=== PATIENT | female | born 1970 | race Hispanic/Latino ===

== ENCOUNTER 2017-07-14 19:15 | Emergency (ER) | payer OTHER, MEDICARE ==
[2017-07-14 20:01] LABS: APPEARANCE,URINE Cloudy (CLEAR); BILIRUBIN,URINE Negative (NEGATIVE); COLOR,URINE Yellow (YELLOW); GLUCOSE, URINE (UA) Negative (NEGATIVE); KETONES,URINE Negative (NEGATIVE); LEUKOCYTE ESTERASE ,URINE Large (NEGATIVE); NITRATE,URINE Positive (NEGATIVE); OCCULT BLOOD,URINE Negative (NEGATIVE); PROTEIN,URINE Trace (NEGATIVE); UROBILINOGEN,URINE 0.2 mg/dL (0.2-1.0)
[2017-07-14] MEDS ORDERED: SODIUM CHLORIDE 0.9% 1000ML 1,000 ML IV ONE (20:04)
[2017-07-14] MEDS ORDERED: KETOROLAC TROMETHAMINE 30MG/ML ONE (20:04)
[2017-07-14] MEDS ORDERED: ONDANSETRON HCL MDV 20ML 2 MG/ML VIAL ONE (20:04)
[2017-07-14 20:12] LABS: BASOPHILS % (AUTO) 0.8 % (0.0-5.0); EOSINOPHILS % (AUTO) 1.1 % (0.0-8.0); HEMATOCRIT 41.2 % (36-48); LYMPHOCYTES % (AUTO) 23.8 % (21.0-51.0); MEAN CORPUSCULAR VOLUME 78.8 fL (79-99); NEUTROPHILS % (AUTO) 65.3 % (40.0-77.0); PLATELET COUNT (AUTO) 367 K/uL (130-400); RED BLOOD CELL COUNT(AUTO) 5.23 MIL/uL (4.00-5.50); RED CELL DISTRIBUTION WIDTH 14.8 % (11.0-15.5); WHITE BLOOD COUNT (AUTO) 11.2 K/uL (4.8-10.8)
[2017-07-14 20:20] LABS: CREATININE 0.9 mg/dL (0.5-1.5); POTASSIUM 3.5 mmol/L (3.5-5.1)
[2017-07-14 20:21] LABS: BACTERIA,URINE Many /HPF (None Seen); MUCUS,URINE None Seen LPF (None Seen); RBC,URINE 0-1 /HPF (0-1); SQUAMOUS EPITHELIAL CELL,UR Moderate /HPF (0-2); TRICHOMONAS,URINE None Seen /LPF (None Seen); YEAST,URINE BUDDING None Seen /HPF (None Seen)
[2017-07-14 20:25] LABS: ALBUMIN 3.3 g/dL (3.5-5.0); BILIRUBIN,DIRECT 0.1 mg/dL (0.0-0.3); BILIRUBIN,TOTAL 0.3 mg/dL (0.2-1.0); TOTAL PROTEIN, SERUM 7.8 g/dL (6.0-8.3)
== END 2017-07-14 20:54 | disposition home or self-care (01) ==
LOC: EDH 19:15
DX: R10.9 Unspecified abdominal pain (principal); N39.0 Urinary tract infection, site not specified; I10 Essential (primary) hypertension; Z90.49 Acquired absence of other specified parts of digestive tract; Z98.51 Tubal ligation status; Z98.890 Other specified postprocedural states; Z87.891 Personal history of nicotine dependence
CPT/HCPCS: 36415; 74176; 80048; 80076; 81001; 83690; 85025; 96374; 96375; 99285; J1885; J7030

== ENCOUNTER 2018-06-29 20:55 | Emergency (ER) | payer OTHER, MEDICARE ==
[2018-06-29 21:50] LABS: BASOPHILS % (AUTO) 0.6 % (0.0-5.0); EOSINOPHILS % (AUTO) 2.4 % (0.0-8.0); HEMATOCRIT 39.5 % (36-48); MEAN CORPUSCULAR HEMOGLOBIN 26.4 pg (27.0-33.0); MEAN CORPUSCULAR HGB CONC 33.6 g/dL (32.0-36.0); MEAN CORPUSCULAR VOLUME 78.6 fL (79-99); MONOCYTES % (AUTO) 10.5 % (3.0-13.0); NEUTROPHILS % (AUTO) 62.5 % (40.0-77.0); NUCLEATED RED BLOOD CELLS 0.1 % (0.0-0.19); PLATELET COUNT (AUTO) 286 K/uL (130-400); RED BLOOD CELL COUNT(AUTO) 5.03 MIL/uL (4.00-5.50); RED CELL DISTRIBUTION WIDTH 14.9 % (11.0-15.5); WHITE BLOOD COUNT (AUTO) 7.4 K/uL (4.8-10.8)
[2018-06-29 21:57] LABS: APPEARANCE,URINE Clear (CLEAR); BILIRUBIN,URINE Negative (NEGATIVE); COLOR,URINE Yellow (YELLOW); GLUCOSE, URINE (UA) Negative (NEGATIVE); KETONES,URINE Negative (NEGATIVE); LEUKOCYTE ESTERASE ,URINE Large (NEGATIVE); NITRATE,URINE Negative (NEGATIVE); OCCULT BLOOD,URINE Nonhemolyzed Trace (NEGATIVE); PH,URINE 6.5 (5.0-8.0); PROTEIN,URINE Negative (NEGATIVE); UROBILINOGEN,URINE 0.2 mg/dL (0.2-1.0)
[2018-06-29 22:10] LABS: CREATININE 0.9 mg/dL (0.5-1.5); POTASSIUM 3.2 mmol/L (3.5-5.1)
[2018-06-29 22:14] LABS: ALBUMIN 3.2 g/dL (3.5-5.0); BILIRUBIN,TOTAL 0.3 mg/dL (0.2-1.0); TOTAL PROTEIN, SERUM 7.2 g/dL (6.0-8.3)
[2018-06-29 22:19] LABS: BACTERIA,URINE Moderate /HPF (None Seen); SQUAMOUS EPITHELIAL CELL,UR Rare /HPF (0-2)
[2018-06-29] MEDS ORDERED: HYDROCODONE/ACETAMINOPHEN 10/325 MG TAB ONE ×2 (22:19→23:18)
[2018-06-29] MEDS ORDERED: CEPHALEXIN 500 MG CAPSULE ONE (23:18)
== END 2018-06-29 23:41 | disposition home or self-care (01) ==
LOC: EDH 20:55
DX: N39.0 Urinary tract infection, site not specified (principal); I10 Essential (primary) hypertension; Z98.890 Other specified postprocedural states; Z90.49 Acquired absence of other specified parts of digestive tract
CPT/HCPCS: 36415; 74176; 80053; 81001; 81025; 82150; 83690; 85025

== ENCOUNTER 2018-08-16 13:49 | Observation (INO) | payer OTHER, MEDICARE ==
[~2018-08-16] VITALS: Ht 157.5 cm; Wt 115.4 kg
[2018-08-16] MEDS ORDERED: ONDANSETRON HCL 4 MG/2 ML VIAL ONE ×2 (14:25→18:38)
[2018-08-16 14:29] LABS: BASOPHILS % (AUTO) 0.8 % (0.0-5.0); HEMATOCRIT 45.8 % (36-48); LYMPHOCYTES % (AUTO) 25.9 % (21.0-51.0); MEAN CORPUSCULAR HEMOGLOBIN 25.8 pg (27.0-33.0); MEAN CORPUSCULAR HGB CONC 32.9 g/dL (32.0-36.0); MEAN CORPUSCULAR VOLUME 78.3 fL (79-99); NEUTROPHILS % (AUTO) 64.3 % (40.0-77.0); PLATELET COUNT (AUTO) 356 K/uL (130-400); RED BLOOD CELL COUNT(AUTO) 5.84 MIL/uL (4.00-5.50); RED CELL DISTRIBUTION WIDTH 14.4 % (11.0-15.5); WHITE BLOOD COUNT (AUTO) 10.9 K/uL (4.8-10.8)
[2018-08-16 14:36] LABS: BILIRUBIN,URINE Negative (NEGATIVE); GLUCOSE, URINE (UA) Negative (NEGATIVE); KETONES,URINE Negative (NEGATIVE); LEUKOCYTE ESTERASE ,URINE Large (NEGATIVE); NITRATE,URINE Positive (NEGATIVE); OCCULT BLOOD,URINE Trace (NEGATIVE); PH,URINE 6.5 (5.0-8.0); PROTEIN,URINE Negative (NEGATIVE); UROBILINOGEN,URINE 0.2 mg/dL (0.2-1.0)
[2018-08-16 14:38] LABS: HCG,QUAL RESULT NEGATIVE (NEGATIVE)
[2018-08-16 14:40] LABS: APPEARANCE,URINE SLIGHTLY CLOUDY (CLEAR); COLOR,URINE Yellow (YELLOW)
[2018-08-16 14:46] LABS: ALBUMIN 3.6 g/dL (3.5-5.0); BILIRUBIN,DIRECT 0.1 mg/dL (0.0-0.3); BILIRUBIN,TOTAL 0.5 mg/dL (0.2-1.0)
[2018-08-16] MEDS ORDERED: KETOROLAC TROMETHAMINE 30MG/ML ONE (14:54)
[2018-08-16] MEDS ORDERED: CEFTRIAXONE SODIUM 1 GM ONE (14:54)
[2018-08-16] MEDS ORDERED: SODIUM CHLORIDE 0.9% 1000ML 1,000 ML IV ONE ×2 (14:55→19:26)
[2018-08-16 14:56] LABS: BACTERIA,URINE Moderate /HPF (None Seen); TRANSITIONAL EPI CELLS,URINE Few /HPF (None Seen); WBC,URINE >100 /HPF (0-1)
[2018-08-16 15:00] LABS: B-TYPE NATRIURETIC PEPTIDE 8 pg/mL (0-100)
[2018-08-16] MEDS ORDERED: POTASSIUM CHLORIDE 20 MEQ ERTAB PO ONE (16:14)
[2018-08-16] MEDS ORDERED: ZOSYN 3.375GM+NS 50ML 50 ML IV ONE (19:25)
[2018-08-16] MEDS ORDERED: LEVOFLOXACIN 500 MG/D5W 100 ML 100 ML ONE (19:25)
[2018-08-16] MEDS ORDERED: MORPHINE SULFATE 2 MG/ML 1ML SYG ONE (19:26)
[2018-08-16] MEDS ORDERED: ONDANSETRON HCL 4 MG/2 ML VIAL IVP PRN (20:00)
[2018-08-17 00:30] VITALS: BP 139/93
--- NOTE | 2018-08-17 02:00 | NUR ---
JANELLE HOSE APPLIED. EXPLAINED INDICATIONS FOR JANELLE HOSE. PT VERBALIZED UNDERSTANDING.
--- NOTE | 2018-08-17 02:06 | NUR ---
EXPLAINED CONTRACT OF SAFETY. PT VERBALIZED UNDERSTANDING AND SIGNED CONTRACT.
[2018-08-17] MEDS: MORPHINE SULFATE 2 MG/ML 1ML SYG IVP PRN ×2 (02:09→12:40)
[2018-08-17] MEDS ORDERED: NITR100C4 PO (02:45)
[2018-08-17] MEDS ORDERED: CEPH500C2 PO (02:45)
[2018-08-17] MEDS ORDERED: HYOS0.124 SL (03:30)
[2018-08-17] MEDS ORDERED: METF500S7 PO (03:30)
[2018-08-17] MEDS ORDERED: ONDA4TAB9 PO (03:30)
[2018-08-17] MEDS ORDERED: PROM25 PO (03:30)
[2018-08-17] MEDS: ZOSYN 3.375GM+NS 50ML 50 ML IV SCH ×3 (04:46→20:57)
[2018-08-17 04:50] VITALS: BP 123/55
[2018-08-17] MEDS: SODIUM CHLORIDE 0.9% 1000ML 1,000 ML IV SCH ×2 (07:20→17:24)
[2018-08-17 08:00] VITALS: BP 122/60
--- NOTE | 2018-08-17 08:00 | NUR ---
SUICIDE RISK PT LAYING IN BED WITHOUT ANY DISTRESS. BEE PAPPAS, TELLER COORDINATOR AT BEDSIDE 1:1 SITTER. PT DENIES CURRENT THOUGHTS OF SUICIDE. WILL CONTINUE TO MONITOR. Addendum: 08/17/18 at 1121 by DERECK CARRION RN RN Amended: Links added.
--- NOTE | 2018-08-17 08:45 | NUR ---
CONSULT DR. RODRIGUEZ'S OFFICE NOTIFIED OF CONSULT. SPOKE WITH JESUS.
--- NOTE | 2018-08-17 09:36 | NUR ---
HX OF BIPOLAR, DEPRESSION, ANXIETY, SUICIDE ATTEMPTS X3 AND RECENT IDEATIONS - NO PLAN SW MET WITH PT WHO LIVES ALONE IN APARTMENT, HAS PROVIDER 20HRS A WEEK, NO HH. PT ON SSD FOR BEING MENTALLY CHALLENGED. PT STATES SHE IS , HAS ADULT CHILDREN, A SON BERONICA GAMBINO [phone] (CORRECTION OFFICE IN [place]) AND A DAUGHTER WHO IS IN [place] AT [facility], SHE ALSO HAS MENTAL HEALTH ISSUES. PT'S MOTHER LIVES IN [place] [phone]. PT STATES SHE HAS HAD NO CONTACT WITH ANY FAMILY MEMBERS FOR YEARS. PT REPORTS SHE IS A PT AT [facility] AND WAS LAST SEEN A MONTH AGO. PT HAS A CASE WKER, SEES THE PSYCHIATRIST AND GETS MEDICATIONS ASSISTANCE THERE. PT STATES SHE LOST HER MEDICATIONS AND HAS NOT BEEN TAKING THEM. PT HAS HX OF THREE SUICIDE ATTEMPTS WHEN SHE WAS A TEEN BY OVER DOSE. PT STATES HER LAST IDEATION WAS A FEW DAYS AGO, BUT SHE HAD NO PLAN. PT DENIES ANY CURRENT THOUGHTS AT THIS TIME AND STATES SHE IS "FEELING FINE" AT THIS TIME. PT STATES SHE WAS WORRIED ABOUT PAYING HER ELECTRIC BILL, AND THAT [employer] HELPED HER WITH BILL. PT STATES HE WORRIES ABOUT PAYING RENT AND BILLS BECAUSE SHE LIVES ON LIMITED INCOME (SSD $750, AND FS $140). bUT USES HER COMMUNITY RESOURCES FOR HELP WHEN SHE HAS TO. PT ALSO USES MEDICAID TRANSPORT TO GET TO MEDICAL APPTS. NURSE DERECK AWARE OF ABOVE AND NEED FOR [facility] SCREEN WHEN MEDICALLY CLEARED FOR DC. SW TO FOLLOW AND ASSIST NEEDED
[2018-08-17 12:00] VITALS: BP 102/60
[2018-08-17 13:24] LABS: BASOPHILS % (AUTO) 0.6 % (0.0-5.0); EOSINOPHILS % (AUTO) 3.2 % (0.0-8.0); HEMATOCRIT 39.9 % (36-48); LYMPHOCYTES % (AUTO) 25.4 % (21.0-51.0); MEAN CORPUSCULAR HEMOGLOBIN 26.1 pg (27.0-33.0); MEAN CORPUSCULAR HGB CONC 32.6 g/dL (32.0-36.0); MONOCYTES % (AUTO) 7.6 % (3.0-13.0); NEUTROPHILS % (AUTO) 63.2 % (40.0-77.0); PLATELET COUNT (AUTO) 285 K/uL (130-400); RED BLOOD CELL COUNT(AUTO) 4.99 MIL/uL (4.00-5.50); RED CELL DISTRIBUTION WIDTH 14.8 % (11.0-15.5); WHITE BLOOD COUNT (AUTO) 6.4 K/uL (4.8-10.8)
[2018-08-17 13:33] LABS: POTASSIUM 3.1 mmol/L (3.5-5.1)
[2018-08-17 13:39] LABS: BILIRUBIN,TOTAL 0.3 mg/dL (0.2-1.0); MAGNESIUM 2.4 mg/dL (1.80-2.40); PHOSPHORUS 3.4 mg/dL (2.5-4.9); TOTAL PROTEIN, SERUM 6.7 g/dL (6.0-8.3)
--- NOTE | 2018-08-17 14:10 | NUR ---
ROUNDING YASMIN CASTILLO NP WITH BENCHMARK AT BEDSIDE TO ASSESS AND TALK TO PATIENT. NEW ORDERS RECEIVED.
[2018-08-17] MEDS ORDERED: TAMSULOSIN HCL 0.4 MG CAP.ER.24H PO SCH (14:15)
--- NOTE | 2018-08-17 15:31 | NUR ---
PSYCH CONSULT DR. PATEL' OFFICE MADE AWARE OF PT CONSULT.
[2018-08-17 16:30] VITALS: BP 99/66
[2018-08-17] MEDS: INSULIN HUMULIN R 100 UNIT/ML 3ML SQ SCH ×2 (16:30→21:00)
[2018-08-17] MEDS: METFORMIN HCL 500 MG TABLET PO SCH (17:24)
--- NOTE | 2018-08-17 17:45 | NUR ---
PSYCH ROUNDING DR. PATEL AT BEDSIDE TO ASSESS AND TALK TO PT. NEW ORDERS RECEIVED. Addendum: 08/17/18 at 1758 by DERECK CARRION RN RN PT CONTINUES TO DENY SUICIDAL IDEATIONS WHEN ASKED BY DR. PATEL.
[2018-08-17] MEDS ORDERED: HYDR-3421 PO (17:55)
[2018-08-17] MEDS ORDERED: FLUO20CA30 PO (17:55)
--- NOTE | 2018-08-17 18:40 | NUR ---
UROLOGY ROUNDING DR. RODRIGUEZ AT BEDSIDE TO ASSESS AND TALK TO PT. NEW ORDERS RECEIVED FOR CT OF ABD/PELVIS WITH AND WITHOUT IV CONTRAST.
[2018-08-17] MEDS ORDERED: LEVOFLOXACIN 500 MG/D5W 100 ML 100 ML IV SCH (19:00)
[2018-08-17 19:13] VITALS: BP 132/84
[2018-08-17] MEDS ORDERED: IOHEXOL-350 75 ML VIAL IV ONE (20:23)
--- NOTE | 2018-08-17 20:35 | NUR ---
TO RADIOLOGY BY W/C FOR CT SCAN Addendum: 08/17/18 at 2322 by JUSTINA ISRAEL LVN Amended: Links added.
[2018-08-17] MEDS: VENLAFAXINE HCL XR 37.5 MG CAP PO SCH (20:57)
[2018-08-17] MEDS ORDERED: VENLAFAXINE HCL XR 150 MG CAP PO SCH (21:00)
--- NOTE | 2018-08-18 01:05 | NUR ---
NAUSEA ASSISTED TO BR TO VOID, C/O NAUSEA , MEDICATED WITH ZOFRAN 4 MG SIV PUSH Addendum: 08/18/18 at 0207 by JUSTINA ISRAEL LVN Amended: Links added.
[2018-08-18 01:20] VITALS: BP 153/94
[2018-08-18] MEDS: SODIUM CHLORIDE 0.9% 1000ML 1,000 ML IV SCH ×2 (02:57→21:01)
[2018-08-18 05:00] VITALS: BP 168/95
[2018-08-18] MEDS: ZOSYN 3.375GM+NS 50ML 50 ML IV SCH ×3 (05:00→20:43)
[2018-08-18 05:40] LABS: BASOPHILS % (AUTO) 0.5 % (0.0-5.0); EOSINOPHILS % (AUTO) 3.4 % (0.0-8.0); HEMATOCRIT 39.4 % (36-48); LYMPHOCYTES % (AUTO) 26.6 % (21.0-51.0); MEAN CORPUSCULAR HEMOGLOBIN 25.7 pg (27.0-33.0); MEAN CORPUSCULAR HGB CONC 32.5 g/dL (32.0-36.0); MEAN CORPUSCULAR VOLUME 79.3 fL (79-99); MONOCYTES % (AUTO) 6.5 % (3.0-13.0); PLATELET COUNT (AUTO) 286 K/uL (130-400); RED BLOOD CELL COUNT(AUTO) 4.97 MIL/uL (4.00-5.50); RED CELL DISTRIBUTION WIDTH 14.5 % (11.0-15.5); WHITE BLOOD COUNT (AUTO) 7.3 K/uL (4.8-10.8)
[2018-08-18 05:53] LABS: HEMOGLOBIN A1C 5.1 % (4.0-6.0)
[2018-08-18 05:59] LABS: BILIRUBIN,TOTAL 0.3 mg/dL (0.2-1.0); CREATININE 0.8 mg/dL (0.5-1.5); MAGNESIUM 1.9 mg/dL (1.80-2.40); PHOSPHORUS 3.2 mg/dL (2.5-4.9); POTASSIUM 3.3 mmol/L (3.5-5.1); THYROID STIMULATING HORMONE 1.48 uIU/mL (0.36-3.74); TOTAL PROTEIN, SERUM 6.8 g/dL (6.0-8.3)
[2018-08-18] MEDS: INSULIN HUMULIN R 100 UNIT/ML 3ML SQ SCH ×4 (07:30→20:50)
[2018-08-18 08:15] VITALS: BP 145/88
--- NOTE | 2018-08-18 08:20 | NUR ---
SUICIDE SCREENING PT LAYING IN BED WITHOUT DISTRESS. 1:1 SITTER AT BEDSIDE. PT DENIED AND IDEATIONS OR PLANS TO HARM SELF OR OTHERS.
[2018-08-18] MEDS: MORPHINE SULFATE 2 MG/ML 1ML SYG IVP PRN ×2 (08:37→15:37)
[2018-08-18] MEDS: TAMSULOSIN HCL 0.4 MG CAP.ER.24H PO SCH (08:37)
[2018-08-18] MEDS: METFORMIN HCL 500 MG TABLET PO SCH ×2 (08:37→18:09)
[2018-08-18] MEDS ORDERED: POTASSIUM CHLORIDE 20MEQ/100ML 100 ML IV PRN (09:30)
[2018-08-18] MEDS ORDERED: LIDOCAINE HCL-MPF 1% 2ML VIAL IVP PRN (09:30)
[2018-08-18] MEDS ORDERED: MAGNESIUM 2GM PREMIX 50ML 50 ML IV PRN (09:30)
[2018-08-18] MEDS ORDERED: POTASSIUM CHLORIDE 10% ELIXIR 20 MEQ/15 ML UDCUP PO PRN (09:30)
--- NOTE | 2018-08-18 10:15 | NUR ---
DR. RODRIGUEZ'S OFFICE CALLED TO NOTIFY OF RESULTS FOR CT SCAN. MUSICAL INSTRUMENT SUPERVISOR AT OFFICE STATED THAT DR. RODRIGUEZ WAS CURRENTLY NOT IN OFFICE AND WOULD BE UNABLE TO TAKE DOWN INFORMATION FOR THE RESULTS. MARGARITA DARLING MADE AWARE PRIOR TO TRANSFER AND WILL FOLLOW UP THROUGHOUT THE DAY.
--- NOTE | 2018-08-18 10:30 | NUR ---
PT TRANSFERRED , [facility] NURSE SOMEONE DID NOT SCAN THE ZOZYN .
--- NOTE | 2018-08-18 10:30 | NUR ---
TRANSFERRED PT TRANSFERRED TO ROOM 330 BY WHEELCHAIR. MARGARITA DARLING WILL RESUME CARE OF PT.
--- NOTE | 2018-08-18 13:00 | NUR ---
DR. RODRIGUEZ PAGEGraham
--- NOTE | 2018-08-18 14:57 | NUR ---
CHARGE NURSE AWARE THAT HAVE NOT GOTTEN A CALL BACK FROM DR. RODRIGUEZ TO CONVEY CT / ABD RESUTLS
[2018-08-18] MEDS: HYDROXYZINE HCL 25 MG TABLET PO SCH ×2 (15:43→20:44)
--- NOTE | 2018-08-18 16:13 | NUR ---
NATHALIE DIRECTOR MADE AWARE, DR. RODRIGUEZ HAS NOT RETURNED MY CALL FOR CT RESUTLS
--- NOTE | 2018-08-18 17:44 | NUR ---
CM Note Notified Dr. Hernandez that Dr. Adrian and Dr. Crawford have cleared for dc and that patient is a [address] Hernandez, dc tomorrow. CD
[2018-08-18 19:28] VITALS: BP 154/86
[2018-08-18] MEDS: POTASSIUM CHLORIDE 20 MEQ ERTAB PO PRN (20:44)
[2018-08-18] MEDS: VENLAFAXINE HCL XR 37.5 MG CAP PO SCH (20:44)
--- NOTE | 2018-08-18 20:44 | NUR ---
MEDS PT CALLS FOR PAIN MEDS. DUE MEDS ADMINISTERED, TOLERATED WELL. KEPT RESTED AND COMFORTABLE IN BED. CALL LIGHT WITHIN REACH. WILL RE-ASSESS PT. Addendum: 08/19/18 at 0205 by HUY ALCOCER RN RN Amended: Links added.
--- NOTE | 2018-08-18 22:00 | NUR ---
RE-ASSESS PT ALREADY ASLEEP WITH RESPIRATIONS EVEN AND UNLABORED. NO NOTED DISTRESS. KEPT UNDISTURBED FOR NOW. WILL MONITOR PT. CALL LIGHT WITHIN REACH.
[2018-08-19 00:22] VITALS: BP 148/95
[2018-08-19] MEDS: POTASSIUM CHLORIDE 20 MEQ ERTAB PO PRN ×3 (01:11→17:40)
--- NOTE | 2018-08-19 01:15 | NUR ---
MEDS AWAKENED PT FOR POTASSIUM DOSE, TOLERATED WELL. ENCOURAGED TO GO BACK TO SLEEP. WILL MONITOR PT.
[2018-08-19] MEDS: SODIUM CHLORIDE 0.9% 1000ML 1,000 ML IV SCH ×2 (01:23→09:18)
[2018-08-19 04:23] VITALS: BP 136/96
[2018-08-19] MEDS: ZOSYN 3.375GM+NS 50ML 50 ML IV SCH ×2 (04:46→13:18)
[2018-08-19 04:55] LABS: INR 1.01 (0.85-1.15); PARTIAL THROMBOPLASTIN TIME 26.8 SEC (26.3-35.5); PROTHROMBIN TIME 10.6 SEC (9.6-11.6)
[2018-08-19 04:58] LABS: CREATININE 0.7 mg/dL (0.5-1.5); MAGNESIUM 2.3 mg/dL (1.80-2.40); PHOSPHORUS 2.7 mg/dL (2.5-4.9); POTASSIUM 3.4 mmol/L (3.5-5.1)
[2018-08-19] MEDS: INSULIN HUMULIN R 100 UNIT/ML 3ML SQ SCH ×3 (06:37→16:30)
--- NOTE | 2018-08-19 07:20 | NUR ---
REPORT ENDORSED PT TO AM SHIFT. NURSE'S ROUNDS DONE. ENDORSING PT FOR MORE CARE AND MANAGEMENT.
[2018-08-19 07:47] VITALS: BP 158/99
[2018-08-19] MEDS: HYDROXYZINE HCL 25 MG TABLET PO SCH ×2 (09:17→13:18)
[2018-08-19] MEDS: METFORMIN HCL 500 MG TABLET PO SCH ×2 (09:17→17:40)
[2018-08-19] MEDS: TAMSULOSIN HCL 0.4 MG CAP.ER.24H PO SCH (09:17)
[2018-08-19] MEDS: MORPHINE SULFATE 2 MG/ML 1ML SYG IVP PRN (09:33)
[2018-08-19 11:00] VITALS: BP 157/106
[2018-08-19 15:24] VITALS: BP 153/69
--- NOTE | 2018-08-19 15:30 | NUR ---
TOMMY NOTES CHART REVIEW DONE AT [facility]. ORDER FOR DISCHARGE, NOTES READ, PT OF FIDEL GRAHAM MD @ TOMMY SIDE, VERBAL ORDED GIVEN STATES HAS TO FOLLOW UP W PCP ARMAAN ROE IN AM , BENCHMARK IN TWO WEEKS TO SET UP SLEEP STUDY AND PLS ENSURE PT TAKES HER SLEEP STUDY, WILL RELAY TO PRIMARY RN Addendum: 08/19/18 at 1533 by CECE MARTINEZ RN CM Amended: Links added.
--- NOTE | 2018-08-19 18:37 | NUR ---
PRESCRIPTION CALLED IN Called in prescriptions from Drs. Sr and Ty for [facility] at [facility] for macrobid 100mg PO BID X 10 more days. And effexor XR 150mg PO AT HS X 2 weeks and atarax 25mg PO TID X 2 weeks to pharmacist Radha. Patient updated. Discharge ready.
== END 2018-08-19 18:25 | disposition home or self-care (01) ==
LOC: EDH 13:49 → EDHIP 18:01 → WSH 23:20 → 3AH 08-18 10:28
PROVIDERS: ADMIT Internal Medicine Critical Care Medicine; ATTEND Internal Medicine Critical Care Medicine
DX: N39.0 Urinary tract infection, site not specified (principal); B96.20 Unspecified Escherichia coli [E. coli] as the cause of diseases classified elsewhere; E11.9 Type 2 diabetes mellitus without complications; E66.01 Morbid (severe) obesity due to excess calories; R11.2 Nausea with vomiting, unspecified; I10 Essential (primary) hypertension; J40 Bronchitis, not specified as acute or chronic; M19.90 Unspecified osteoarthritis, unspecified site; G47.33 Obstructive sleep apnea (adult) (pediatric); R45.851 Suicidal ideations; F41.9 Anxiety disorder, unspecified; F33.9 Major depressive disorder, recurrent, unspecified; F60.7 Dependent personality disorder; F79 Unspecified intellectual disabilities; Z59.0 Homelessness; Z79.84 Long term (current) use of oral hypoglycemic drugs; Z79.899 Other long term (current) drug therapy; Z87.442 Personal history of urinary calculi; Z91.19 Patient's noncompliance with other medical treatment and regimen; Z79.01 Long term (current) use of anticoagulants
CPT/HCPCS: 36415 ×4; 74178; 76770; 80048 ×2; 80053 ×2; 80061; 80076; 81001; 81025; 82550; 82948 ×8; 83036; 83605; 83690; 83735 ×3; 83880; 84100 ×3; 84443; 84484; 85025 ×3; 85610; 85730; 87077; 87088; 87186; 93005; 96361 ×3; 96365; 96366 ×3; 96368; 96375 ×2; 96376 ×3; 99284; A4510; G0378 ×70; J0696; J1885; J1956; J2405 ×3; J2543 ×8; J3475; J7030 ×5; Q9967

== ENCOUNTER 2020-02-06 09:22 | Emergency (ER) | payer OTHER, MEDICARE ==
[~2020-02-06 09:22] MED LIST: CEPH500C2 PO; HYDR-3421 PO; HYOS0.124 SL; METF500S7 PO; NITR100C4 PO; ONDA-104 PO; PROM25 PO
[2020-02-06 10:05] LABS: BASOPHILS % (AUTO) 0.4 % (0.0-5.0); EOSINOPHILS % (AUTO) 1.1 % (0.0-8.0); HEMATOCRIT 41.7 % (36-48); LYMPHOCYTES % (AUTO) 19.1 % (21.0-51.0); MEAN CORPUSCULAR HEMOGLOBIN 25.7 pg (27.0-33.0); MEAN CORPUSCULAR HGB CONC 31.9 g/dL (32.0-36.0); MEAN CORPUSCULAR VOLUME 80.7 fL (79-99); MONOCYTES % (AUTO) 6.5 % (3.0-13.0); NEUTROPHILS % (AUTO) 72.6 % (40.0-77.0); PLATELET COUNT (AUTO) 300 K/uL (130-400); RED BLOOD CELL COUNT(AUTO) 5.17 MIL/uL (4.00-5.50)
[2020-02-06 10:31] LABS: ALBUMIN 3.4 g/dL (3.5-5.0); BILIRUBIN,TOTAL 0.6 mg/dL (0.2-1.0); POTASSIUM 3.5 mmol/L (3.5-5.1); TOTAL PROTEIN, SERUM 7.5 g/dL (6.0-8.3)
[2020-02-06 10:34] LABS: APPEARANCE,URINE Cloudy (CLEAR); BILIRUBIN,URINE Negative (NEGATIVE); COLOR,URINE Yellow (YELLOW); GLUCOSE, URINE (UA) Negative (NEGATIVE); KETONES,URINE Negative (NEGATIVE); LEUKOCYTE ESTERASE ,URINE Large (NEGATIVE); NITRATE,URINE Negative (NEGATIVE); OCCULT BLOOD,URINE Small (NEGATIVE); PH,URINE 6.5 (5.0-8.0); PROTEIN,URINE POS 1+ mg/dL (NEGATIVE)
[2020-02-06 10:52] LABS: WBC,URINE >100 /HPF (0-1)
[2020-02-06 10:53] LABS: BACTERIA,URINE Moderate /HPF (None Seen); MUCUS,URINE Few LPF (None Seen); SQUAMOUS EPITHELIAL CELL,UR Few /HPF (0-2)
[2020-02-06] MEDS ORDERED: CEFTRIAXONE SODIUM 1 GM ONE (12:27)
== END 2020-02-06 13:34 | disposition home or self-care (01) ==
LOC: EDH 09:22
DX: N30.00 Acute cystitis without hematuria (principal); J10.1 Influenza due to other identified influenza virus with other respiratory manifestations; Z20.828 Contact with and (suspected) exposure to other viral communicable diseases; J44.9 Chronic obstructive pulmonary disease, unspecified; E11.9 Type 2 diabetes mellitus without complications; I10 Essential (primary) hypertension; E78.00 Pure hypercholesterolemia, unspecified
CPT/HCPCS: 36415; 71045; 80053; 81001; 83690; 85025; 87077 ×2; 87088; 87186 ×2; 87426; 87804 ×2; 93005; 96374; 99285; J0696; U0003

== ENCOUNTER 2020-02-16 18:07 | Emergency (ER) | payer OTHER, MEDICARE ==
[2020-02-16 19:29] LABS: BASOPHILS % (AUTO) 0.4 % (0.0-5.0); EOSINOPHILS % (AUTO) 1.9 % (0.0-8.0); HEMATOCRIT 41.7 % (36-48); LYMPHOCYTES % (AUTO) 21.8 % (21.0-51.0); MEAN CORPUSCULAR HEMOGLOBIN 25.1 pg (27.0-33.0); MEAN CORPUSCULAR HGB CONC 30.9 g/dL (32.0-36.0); MEAN CORPUSCULAR VOLUME 81.3 fL (79-99); MONOCYTES % (AUTO) 7.7 % (3.0-13.0); NEUTROPHILS % (AUTO) 67.9 % (40.0-77.0); PLATELET COUNT (AUTO) 304 K/uL (130-400); RED BLOOD CELL COUNT(AUTO) 5.13 MIL/uL (4.00-5.50); WHITE BLOOD COUNT (AUTO) 9.4 K/uL (4.8-10.8)
[2020-02-16 19:34] LABS: APPEARANCE,URINE CLOUDY (CLEAR); BILIRUBIN,URINE NEGATIVE (NEGATIVE); COLOR,URINE YELLOW (YELLOW); GLUCOSE, URINE (UA) NEGATIVE (NEGATIVE); KETONES,URINE NEGATIVE (NEGATIVE); LEUKOCYTE ESTERASE ,URINE MODERATE (NEGATIVE); NITRATE,URINE POSITIVE (NEGATIVE); OCCULT BLOOD,URINE LARGE (NEGATIVE); PH,URINE 5.5 (5.0-8.0); PROTEIN,URINE 100 mg/dL (NEGATIVE); UROBILINOGEN,URINE 0.2 mg/dL (0.2-1.0)
[2020-02-16 19:40] LABS: POTASSIUM 3.7 mmol/L (3.5-5.1)
[2020-02-16 19:43] LABS: INR 1.02 (0.85-1.15)
[2020-02-16 19:47] LABS: ALBUMIN 3.3 g/dL (3.5-5.0); BILIRUBIN,TOTAL 0.3 mg/dL (0.2-1.0); TOTAL PROTEIN, SERUM 7.5 g/dL (6.0-8.3)
[2020-02-16 19:49] LABS: WBC,URINE >100 /HPF (0-1)
[2020-02-16 19:50] LABS: BACTERIA,URINE Few /HPF (None Seen); SQUAMOUS EPITHELIAL CELL,UR Rare /HPF (0-2)
[2020-02-16 20:01] LABS: PARTIAL THROMBOPLASTIN TIME 27.1 SEC (26.3-35.5)
[2020-02-16] MEDS ORDERED: SODIUM CHLORIDE 0.9% 1000ML 1,000 ML IV ONE (20:32)
[2020-02-16] MEDS ORDERED: CEFTRIAXONE SODIUM 1 GM ONE (20:35)
[2020-02-16] MEDS ORDERED: KETOROLAC TROMETHAMINE 30MG/ML ONE (21:23)
== END 2020-02-16 21:54 | disposition home or self-care (01) ==
LOC: EDH 18:07
DX: N39.0 Urinary tract infection, site not specified (principal); E86.0 Dehydration; E11.9 Type 2 diabetes mellitus without complications; I10 Essential (primary) hypertension; J44.9 Chronic obstructive pulmonary disease, unspecified; E78.00 Pure hypercholesterolemia, unspecified
CPT/HCPCS: 36415; 80053; 81001; 85025; 85610; 85730; 87040 ×2; 87077; 87088; 87186; 96361; 96374; 96375; 99284; J0696; J1885; J7030

== ENCOUNTER → 2020-09-11 | Outpatient (CLI) | payer OTHER, MEDICARE | END | disposition home or self-care (01) | LOC: RAH 14:13 | PROVIDERS: ATTEND Family Medicine | DX: Z12.31 Encounter for screening mammogram for malignant neoplasm of breast (principal) | CPT/HCPCS: 77067 ==

== ENCOUNTER → 2020-11-04 | Outpatient (CLI) | payer OTHER, MEDICARE | END | disposition home or self-care (01) | LOC: SLP 19:07 | PROVIDERS: ATTEND Family Medicine | DX: G47.10 Hypersomnia, unspecified (principal); R40.0 Somnolence; R06.83 Snoring | CPT/HCPCS: 95810; 95811 ==

== ENCOUNTER 2021-04-23 17:43 | Emergency (ER) | payer OTHER, MEDICARE ==
[~2021-04-23] VITALS: Ht 154.9 cm; Wt 122.5 kg
[~2021-04-23 17:43] MED LIST changes: +AZIT1PAC7 PO; +D-ME118S47 PO
[2021-04-23 18:29] VITALS: BP 163/64
[2021-04-23] MEDS ORDERED: CYCLOBENZAPRINE HCL 10 MG TABLET PO ONE (19:00)
[2021-04-23] MEDS ORDERED: KETOROLAC 60 MG VIAL (30MG/ML) IM ONE (19:00)
[2021-04-23] MEDS ORDERED: HYDROCODONE/ACETAMINOPHEN 10/325 MG TAB PO ONE (19:00)
[2021-04-23] MEDS ORDERED: ACET-2247 PO (20:46)
[2021-04-23] MEDS ORDERED: CYCL10TA16 PO (20:46)
== END 2021-04-23 21:31 | disposition home or self-care (01) ==
LOC: EDH 17:43
DX: M54.42 Lumbago with sciatica, left side (principal); E11.9 Type 2 diabetes mellitus without complications; E78.00 Pure hypercholesterolemia, unspecified; I10 Essential (primary) hypertension; Z79.1 Long term (current) use of non-steroidal anti-inflammatories (NSAID); Z79.84 Long term (current) use of oral hypoglycemic drugs; Z90.49 Acquired absence of other specified parts of digestive tract
CPT/HCPCS: 72100; 96372; 99283; J1885

== ENCOUNTER 2021-12-03 09:23 | Emergency (ER) | payer OTHER, MEDICARE ==
[~2021-12-03 09:23] MED LIST changes: +ACET-2247 PO; +CYCL10TA16 PO; -METF500S7 PO; +METF500S9 PO
[2021-12-03 09:26] VITALS: BP 116/75
[2021-12-03 09:43] LABS: BASOPHILS % (AUTO) 0.3 % (0.0-5.0); EOSINOPHILS % (AUTO) 2.9 % (0.0-8.0); HEMATOCRIT 39.7 % (36-48); MEAN CORPUSCULAR HEMOGLOBIN 26.2 pg (27.0-33.0); MEAN CORPUSCULAR HGB CONC 31.5 g/dL (32.0-36.0); MEAN CORPUSCULAR VOLUME 83.1 fL (79-99); MONOCYTES % (AUTO) 8.1 % (3.0-13.0); NEUTROPHILS % (AUTO) 71.4 % (40.0-77.0); PLATELET COUNT (AUTO) 272 K/uL (130-400); RED BLOOD CELL COUNT(AUTO) 4.78 MIL/uL (4.00-5.50); RED CELL DISTRIBUTION WIDTH 14.4 % (11.0-15.5); WHITE BLOOD COUNT (AUTO) 9.4 K/uL (4.8-10.8)
[2021-12-03 09:51] LABS: CREATININE 0.8 mg/dL (0.5-1.5); POTASSIUM 3.9 mmol/L (3.5-5.1)
[2021-12-03 09:56] LABS: ALBUMIN 3.3 g/dL (3.5-5.0); TOTAL PROTEIN, SERUM 7.2 g/dL (6.0-8.3)
== END 2021-12-03 11:52 | disposition left against medical advice (07) ==
LOC: EDH 09:23
DX: M79.605 Pain in left leg (principal); M79.604 Pain in right leg; Z53.21 Procedure and treatment not carried out due to patient leaving prior to being seen by health care provider
CPT/HCPCS: 36415; 80053; 85025

== ENCOUNTER 2022-04-18 16:42 | Emergency (ER) | payer OTHER, MEDICARE ==
[~2022-04-18] VITALS: Ht 154.9 cm; Wt 119.3 kg
[2022-04-18 17:13] LABS: BASOPHILS % (AUTO) 0.5 % (0.0-5.0); HEMATOCRIT 40.2 % (36-48); LYMPHOCYTES % (AUTO) 19.9 % (21.0-51.0); MEAN CORPUSCULAR HEMOGLOBIN 25.8 pg (27.0-33.0); MEAN CORPUSCULAR HGB CONC 31.1 g/dL (32.0-36.0); MEAN CORPUSCULAR VOLUME 83.1 fL (79-99); MONOCYTES % (AUTO) 7.7 % (3.0-13.0); NEUTROPHILS % (AUTO) 70.6 % (40.0-77.0); PLATELET COUNT (AUTO) 300 K/uL (130-400); RED BLOOD CELL COUNT(AUTO) 4.84 MIL/uL (4.00-5.50); RED CELL DISTRIBUTION WIDTH 13.5 % (11.0-15.5); WHITE BLOOD COUNT (AUTO) 10.5 K/uL (4.8-10.8)
[2022-04-18 17:21] LABS: CREATININE 0.8 mg/dL (0.5-1.5); POTASSIUM 3.8 mmol/L (3.5-5.1)
[2022-04-18 17:25] LABS: ALBUMIN 3.6 g/dL (3.5-5.0); TOTAL PROTEIN, SERUM 7.5 g/dL (6.0-8.3)
[2022-04-18] MEDS ORDERED: HYDROCODONE/ACETAMINOPHEN 5/325 MG TAB PO ONE (17:30)
[2022-04-18] MEDS ORDERED: IBUPROFEN 600 MG TABLET PO ONE (17:30)
[2022-04-18] MEDS ORDERED: ACET-2079 PO (18:39)
[2022-04-18 19:37] VITALS: BP 136/82
== END 2022-04-18 19:39 | disposition home or self-care (01) ==
LOC: EDH 16:42
DX: S93.402A Sprain of unspecified ligament of left ankle, initial encounter (principal); S80.212A Abrasion, left knee, initial encounter; S50.312A Abrasion of left elbow, initial encounter; J44.9 Chronic obstructive pulmonary disease, unspecified; E11.9 Type 2 diabetes mellitus without complications; E78.00 Pure hypercholesterolemia, unspecified; I10 Essential (primary) hypertension; Z79.84 Long term (current) use of oral hypoglycemic drugs; Z90.49 Acquired absence of other specified parts of digestive tract; Z98.890 Other specified postprocedural states; Y93.89 Activity, other specified; W54.1XXA Struck by dog, initial encounter; Y92.89 Other specified places as the place of occurrence of the external cause; Y99.8 Other external cause status
CPT/HCPCS: 36415; 73070; 73562; 73610; 80053; 85025

== ENCOUNTER 2022-04-28 11:10 | Emergency (ER) | payer OTHER, MEDICARE ==
[~2022-04-28] VITALS: Ht 157.5 cm; Wt 99.8 kg
[~2022-04-28 11:10] MED LIST changes: +ACET-2079 PO
[2022-04-28] MEDS ORDERED: MORPHINE 4 MG SYG IVP ONE ×2 (13:30→17:30)
[2022-04-28] MEDS ORDERED: ONDANSETRON 4MG INJ IVP STA (15:13)
[2022-04-28] MEDS ORDERED: ONDANSETRON 4MG INJ IVP ONE (17:30)
[2022-04-28 17:48] LABS: BASOPHILS % (AUTO) 0.4 % (0.0-5.0); EOSINOPHILS % (AUTO) 1.5 % (0.0-8.0); HEMATOCRIT 40.5 % (36-48); LYMPHOCYTES % (AUTO) 18.3 % (21.0-51.0); MEAN CORPUSCULAR HEMOGLOBIN 25.8 pg (27.0-33.0); MEAN CORPUSCULAR HGB CONC 31.4 g/dL (32.0-36.0); MEAN CORPUSCULAR VOLUME 82.2 fL (79-99); MONOCYTES % (AUTO) 6.6 % (3.0-13.0); NEUTROPHILS % (AUTO) 72.9 % (40.0-77.0); PLATELET COUNT (AUTO) 280 K/uL (130-400); RED BLOOD CELL COUNT(AUTO) 4.93 MIL/uL (4.00-5.50); RED CELL DISTRIBUTION WIDTH 13.8 % (11.0-15.5); WHITE BLOOD COUNT (AUTO) 10.7 K/uL (4.8-10.8)
[2022-04-28 18:00] LABS: CREATININE 0.7 mg/dL (0.5-1.5); POTASSIUM 3.6 mmol/L (3.5-5.1)
[2022-04-28 18:05] LABS: ALBUMIN 3.3 g/dL (3.5-5.0); TOTAL PROTEIN, SERUM 7.2 g/dL (6.0-8.3)
[2022-04-28] MEDS ORDERED: IOHEXOL 350 MG/ML 100ML INFUS..BTL IV ONE (18:07)
[2022-04-29 00:44] VITALS: BP 141/74
== END 2022-04-29 00:45 | disposition home or self-care (01) ==
LOC: EDH 11:10
DX: M25.511 Pain in right shoulder (principal); M54.9 Dorsalgia, unspecified; M79.10 Myalgia, unspecified site; N20.0 Calculus of kidney; J44.9 Chronic obstructive pulmonary disease, unspecified; E11.9 Type 2 diabetes mellitus without complications; E78.00 Pure hypercholesterolemia, unspecified; I10 Essential (primary) hypertension; Z79.84 Long term (current) use of oral hypoglycemic drugs; Z90.49 Acquired absence of other specified parts of digestive tract; Z79.899 Other long term (current) drug therapy; Z98.890 Other specified postprocedural states; W19.XXXA Unspecified fall, initial encounter; Y93.89 Activity, other specified; Y92.89 Other specified places as the place of occurrence of the external cause; Y99.8 Other external cause status
CPT/HCPCS: 99285; 74177; 96374; 96375; 80053; 85025; 36415; 72100; 73030; 72070; 96376 ×2; J2405 ×2; J2270 ×2; Q9967

== ENCOUNTER 2022-05-22 22:07 | Emergency (ER) | payer OTHER, MEDICARE ==
[2022-05-22 23:08] LABS: BASOPHILS % (AUTO) 0.5 % (0.0-5.0); EOSINOPHILS % (AUTO) 1.6 % (0.0-8.0); HEMATOCRIT 39.5 % (36-48); LYMPHOCYTES % (AUTO) 14.5 % (21.0-51.0); MEAN CORPUSCULAR HEMOGLOBIN 26.2 pg (27.0-33.0); MEAN CORPUSCULAR HGB CONC 31.6 g/dL (32.0-36.0); MEAN CORPUSCULAR VOLUME 82.6 fL (79-99); MONOCYTES % (AUTO) 7.6 % (3.0-13.0); NEUTROPHILS % (AUTO) 75.5 % (40.0-77.0); PLATELET COUNT (AUTO) 307 K/uL (130-400); RED BLOOD CELL COUNT(AUTO) 4.78 MIL/uL (4.00-5.50); RED CELL DISTRIBUTION WIDTH 13.5 % (11.0-15.5); WHITE BLOOD COUNT (AUTO) 12.7 K/uL (4.8-10.8)
[2022-05-22] MEDS ORDERED: MORPHINE 4 MG SYG IM ONE (23:30)
[2022-05-22 23:54] LABS: POTASSIUM 3.7 mmol/L (3.5-5.1)
[2022-05-23 00:15] LABS: ALBUMIN 3.4 g/dL (3.5-5.0); CREATININE 0.9 mg/dL (0.5-1.5); TOTAL PROTEIN, SERUM 7.2 g/dL (6.0-8.3)
[2022-05-23] MEDS ORDERED: ACET-2079 PO (00:26)
[2022-05-23 00:39] VITALS: BP 129/77
== END 2022-05-23 00:41 | disposition home or self-care (01) ==
LOC: EDH 22:07
DX: M25.551 Pain in right hip (principal); M25.511 Pain in right shoulder; J44.9 Chronic obstructive pulmonary disease, unspecified; E11.9 Type 2 diabetes mellitus without complications; E78.00 Pure hypercholesterolemia, unspecified; I10 Essential (primary) hypertension; Z79.84 Long term (current) use of oral hypoglycemic drugs; Z90.49 Acquired absence of other specified parts of digestive tract; Z98.890 Other specified postprocedural states; W18.39XA Other fall on same level, initial encounter; Y93.89 Activity, other specified; Y92.89 Other specified places as the place of occurrence of the external cause; Y99.8 Other external cause status
CPT/HCPCS: 99285; 71045; 84484; 80053; 85025; 36415; 72170; 73030; 96372; 93005; J2270

== ENCOUNTER 2022-08-06 18:21 | Emergency (ER) | payer OTHER, MEDICARE ==
[~2022-08-06] VITALS: Ht 154.9 cm; Wt 114.3 kg
[2022-08-06] MEDS ORDERED: ACETAMINOPHEN 500 MG TABLET PO ONE (20:00)
[2022-08-06 20:03] LABS: BASOPHILS % (AUTO) 0.2 % (0.0-5.0); HEMATOCRIT 37.3 % (36-48); LYMPHOCYTES % (AUTO) 13.5 % (21.0-51.0); MEAN CORPUSCULAR HEMOGLOBIN 26.4 pg (27.0-33.0); MEAN CORPUSCULAR HGB CONC 31.6 g/dL (32.0-36.0); MEAN CORPUSCULAR VOLUME 83.4 fL (79-99); MONOCYTES % (AUTO) 14.8 % (3.0-13.0); NEUTROPHILS % (AUTO) 70.8 % (40.0-77.0); PLATELET COUNT (AUTO) 185 K/uL (130-400); RED BLOOD CELL COUNT(AUTO) 4.47 MIL/uL (4.00-5.50); RED CELL DISTRIBUTION WIDTH 14.3 % (11.0-15.5); WHITE BLOOD COUNT (AUTO) 6.1 K/uL (4.8-10.8)
[2022-08-06 20:19] LABS: ALBUMIN 3.4 g/dL (3.5-5.0); CREATININE 0.8 mg/dL (0.5-1.5); POTASSIUM 3.9 mmol/L (3.5-5.1); TOTAL PROTEIN, SERUM 6.5 g/dL (6.0-8.3)
[2022-08-06] MEDS ORDERED: 0.9%NACL 1000ML 2,000 ML IV ONE (21:00)
[2022-08-06] MEDS ORDERED: NIRM1TAB PO (22:29)
[2022-08-06] MEDS ORDERED: IBUP-1493 PO (22:29)
[2022-08-06] MEDS ORDERED: ONDA-104 PO (22:29)
[2022-08-06 23:55] VITALS: BP 127/69
== END 2022-08-06 23:56 | disposition home or self-care (01) ==
LOC: EDH 18:21
DX: U07.1 COVID-19 (principal); E86.0 Dehydration; R55 Syncope and collapse; J44.9 Chronic obstructive pulmonary disease, unspecified; E11.9 Type 2 diabetes mellitus without complications; E78.00 Pure hypercholesterolemia, unspecified; I10 Essential (primary) hypertension; Z79.84 Long term (current) use of oral hypoglycemic drugs
CPT/HCPCS: 99285; 96360; 71045; 87635; 96361; 84484; 80053; 85025; 87804 ×2; 36415; 93005; C9803; J7030

== ENCOUNTER 2024-01-16 23:03 | Emergency (ER) | payer MEDICARE ==
[~2024-01-16] VITALS: Ht 154.9 cm; Wt 117.5 kg
[~2024-01-16 23:03] MED LIST changes: -AZIT1PAC7 PO; +BROM118S48 PO; -CEPH500C2 PO; -D-ME118S47 PO; +IBUP-1493 PO; +NIRM1TAB PO; -NITR100C4 PO
[2024-01-16 23:08] VITALS: TEMP 98.5
[2024-01-16] MEDS: ondanSETRON 4MG INJ IVP ONE (23:51)
[2024-01-16] MEDS: ORPHENADRINE 60MG/2ML IVP ONE (23:51)
[2024-01-16] MEDS: ketOROlac 15MG/ML VIAL (15MG/ML) IV ONE (23:51)
[2024-01-16] MEDS: morPHINE 2 MG SYG IVP ONE (23:52)
[2024-01-17] MEDS: morPHINE 2 MG SYG IVP ONE (01:37)
[2024-01-17 02:55] VITALS: BP 106/65; PULSE 62; RESP 16; O2SAT 96
== END 2024-01-17 03:06 | disposition home or self-care (01) ==
LOC: EDH 23:03
DX: G89.29 Other chronic pain (principal); M54.50 Low back pain, unspecified; E11.9 Type 2 diabetes mellitus without complications; E66.01 Morbid (severe) obesity due to excess calories; I10 Essential (primary) hypertension; J44.89 Other specified chronic obstructive pulmonary disease; Z79.1 Long term (current) use of non-steroidal anti-inflammatories (NSAID); Z79.84 Long term (current) use of oral hypoglycemic drugs; Z88.8 Allergy status to other drugs, medicaments and biological substances; Z98.890 Other specified postprocedural states
CPT/HCPCS: 99284; 96374; 96375; 84484; 96376; J2270 ×2; J2405; J1885; J2360